=== PATIENT | male | born 1985 | race Caucasian/White ===

== ENCOUNTER 2016-08-21 21:31 | Emergency (ER) | payer OTHER ==
[~2016-08-21] VITALS: Ht 167.6 cm; Wt 69.5 kg
[2016-08-21 21:36] VITALS: TEMP 98
[2016-08-22] MEDS ORDERED: AMOXICILLIN 8751 TAB PO (01:51)
[2016-08-22] MEDS ORDERED: NORCO 325 MG-7.1 TAB PO (01:51)
[2016-08-22 02:23] VITALS: BP 140/80; PULSE 42
== END 2016-08-22 02:29 | disposition home or self-care (01) ==
LOC: COL.ER 21:31
DX: S61.250A Open bite of right index finger without damage to nail, initial encounter (principal); S61.252A Open bite of right middle finger without damage to nail, initial encounter; S61.254A Open bite of right ring finger without damage to nail, initial encounter; W54.0XXA Bitten by dog, initial encounter; Y92.009 Unspecified place in unspecified non-institutional (private) residence as the place of occurrence of the external cause